=== PATIENT | female | born 1995 | race African-American/Black ===

== ENCOUNTER 2016-10-21 08:29 | Emergency (ER) | payer OTHER, MEDICAID ==
[2016-10-21 08:37] VITALS: BP 126/63
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
== END 2016-10-21 09:18 | disposition home or self-care (01) ==
LOC: ER 08:29
DX: M54.5 Low back pain (principal); R11.10 Vomiting, unspecified
CPT/HCPCS: 99283

== ENCOUNTER 2017-03-15 15:05 | Emergency (ER) | payer MEDICAID, OTHER ==
--- NOTE | 2017-03-15 16:00 | ER Document Report ---
ED Oral Problem - General Chief Complaint: Jaw Pain Stated Complaint: TOOTHACHE Time Seen by Provider: 03/15/17 15:48 Mode of Arrival: Ambulatory Information source: Patient Notes: 1-year-old female presented to ED for left lower jaw pain 2 weeks. She states the pain is 5 out of 5 this morning. She also complains of a headache. She states she has pain and numbness down her left arm for the last 2-3 weeks. She denies any fall any injuries or any neck pain. She states she also has some lacerations to her left back just above her scapula. TRAVEL OUTSIDE OF THE [place] IN LAST 30 DAYS: No - HPI Patient complains to provider of: Jaw pain, Toothache, Other - Numbness to her left arm for 2 weeks small old lacerations to the left upper back. No: Swelling of jaw Onset: Other - Has been for 2-3 weeks except for the laceration has been a little over a week Onset: Gradual Quality of pain: Achy, Dull, Sharp Severity: Moderate Pain Level: 4 Associated symptoms: Headache, Toothache, Other - Pain and numbness to the left arm healing laceration to the left upper back Worsened by: Nothing Similar symptoms previously: Yes Recently seen / treated by doctor/dentist: No - Related Data Allergies/Adverse Reactions: No Known Allergies Allergy (Verified 03/15/17 15:11) Past Medical History - General Information source: Patient - Social History Smoking Status: Former Smoker Cigarette use (# per day): No Chew tobacco use (# tins/day): No Smoking Education Provided: No Frequency of alcohol use: None Drug Abuse: None Occupation: [employer] center Lives with: Alone - Alone with children Family History: Reviewed & Not Pertinent - Past Medical History Cardiac Medical History: Reports: None Pulmonary Medical History: Reports: None EENT Medical History: Reports: None Neurological Medical History: Reports: None Endocrine Medical History: Reports: None Renal/ Medical History: Reports: None Malignancy Medical History: Reports: None GI Medical History: Reports: None Musculoskeltal Medical History: Reports None Skin Medical History: Reports None Psychiatric Medical History: Reports: Hx Depression Traumatic Medical History: Reports: None Infectious Medical History: Reports: None Past Surgical History: Reports: Hx Section - Immunizations Immunizations up to date: Yes Hx Diphtheria, Pertussis, Tetanus Vaccination: Yes Review of Systems - Review of Systems Constitutional: No symptoms reported EENT: No symptoms reported Cardiovascular: No symptoms reported Respiratory: No symptoms reported Gastrointestinal: No symptoms reported Genitourinary: No symptoms reported Female Genitourinary: No symptoms reported Musculoskeletal: No symptoms reported Skin: No symptoms reported Hematologic/Lymphatic: No symptoms reported Neurological/Psychological: No symptoms reported -: Yes All other systems reviewed and negative Physical Exam - Vital signs Vitals: Temp Pulse Resp BP Pulse Ox 98.3 F 75 18 127/63 H 100 03/15/17 15:07 03/15/17 15:07 03/15/17 15:07 03/15/17 15:07 03/15/17 15:07 Interpretation: Normal - General General appearance: Appears well, Alert - HEENT Head: Normocephalic, Atraumatic Eyes: Normal Pupils: PERRL Ears: Normal External canal: Normal Tympanic membrane: Normal Sinus: Normal Nasal: Normal Mouth/Lips: Caries Teeth diagram: 1 - Mild redness to the gums small cavity no swelling to the gums or face. Pharynx: Normal Neck: Normal - Respiratory Respiratory status: No respiratory distress Chest status: Nontender Breath sounds: Normal Chest palpation: Normal - Cardiovascular Rhythm: Regular Heart sounds: Normal auscultation Murmur: No - Abdominal Inspection: Normal Distension: No distension Bowel sounds: Normal Tenderness: Nontender Organomegaly: No organomegaly - Back Back: Normal, Nontender - Extremities General upper extremity: Normal inspection, Nontender, Normal color, Normal ROM , Normal temperature General lower extremity: Normal inspection, Nontender, Normal color, Normal ROM , Normal temperature, Normal weight bearing. No: Spencer's sign - Neurological Neuro grossly intact: Yes Cognition: Normal Orientation: AAOx4 Brenna Coma Scale Eye Opening: Spontaneous [place] Coma Scale Verbal: Oriented Brenna Coma Scale Motor: Obeys Commands [place] Coma Scale Total: 15 Speech: Normal Motor strength normal: LUE, RUE, LLE, RLE Sensory: Normal - Psychological Associated symptoms: Normal affect, Normal mood - Skin Skin Temperature: Warm Skin Moisture: Dry Skin Color: Normal Course - Vital Signs Vital signs: Temp Pulse Resp BP Pulse Ox 98.7 F 75 16 120/63 100 03/15/17 16:13 03/15/17 16:13 03/15/17 16:13 03/15/17 16:13 03/15/17 16:13 Discharge - Discharge Clinical Impression: Pain due to dental caries Condition: Stable Disposition: HOME, SELF-CARE Instructions: Use of Qztz-Ode-Qjjctsa Ibuprofen ([facility]), Family Physicians / Practices Additional Instructions: TOOTHACHE: Your pain is due to dental decay. The tooth must be repaired in order for you to feel better. You will, therefore, be referred to a dentist. We do not have dentists on the staff at [facility]. Severe swelling or drainage around a tooth usually means a dental abscess. This also requires evaluation and treatment by the dentist, but antibiotics may be prescribed while awaiting dental treatment. You should be rechecked immediately if you develop major swelling of the face, increasing pain, a lump in the jaw or gums, headache, difficulty swallowing, or fever. Amoxicillin Amoxicillin is a member of the penicillin family. It covers the germs likely to cause ear, bronchial, and urinary infections better than plain penicillin. Amoxicillin can be taken without regard to meals. Nausea after taking the medication is rare, but can occur. Diarrhea can occur, particularly in small children. Vaginal yeast infections and oral thrush in infants are also common. Contact your physician if these problems occur. Allergy to penicillins is common. If you have had an allergic reaction to any drug of the penicillin family, you should never take any other penicillin. Notify your doctor at once if you develop hives, itching, swelling, faintness, or shortness of breath. Less serious side effects can include nausea or diarrhea. Your pain in the left arm with numbness is something he will need to follow-up with the primary doctor who can do nerve conduction studies as there is no pain or discomfort in your neck and you have not injured your neck. The antibiotic that I am giving you for your dental pain should also help the lacerations on your back that you have had for about a week. FOLLOW-UP CARE: You have been referred for follow-up care to the dentists listed below. Call the dentists office for an appointment as you were instructed or within the next two days. If you experience worsening or a significant change in your symptoms, notify the physician immediately or return to the Emergency Department at any time for re-evaluation. [facility] [address] [place], [place] Mitesh mornings, by appointment [facility] [address] [place] [address] [facility] [address] [facility] [address] [facility] [address] [facility] [email or web address] [facility] [address] [place] [address] Monday- 8:00am to 5:00 pm Will see patients from other [facility]. Charges based on income and family size and accepts Medicare, Medicaid, and Insurances Will pull molars [facility] [address] Hours of Operation 8:00 am - 4:30 pm weekdays The following dental offices accept Medicaid: [facility] Dr. Pinzon Dr. Brown Dr. Mercado Dr. Mccabe Rio Sanchez Lutsavage, and Domitila oral surgery Dr. King ([place]) Dr. Laird ([place]) [facility] Drs. Cooper and Michael ([employer]) Dr. Robert ([employer]) [facility] Dr. Diallo ([place]) Drs. Weller and Scholar ([place]) Medicaid Care Line Prescriptions: Amoxicillin Trihydrate [Amoxil 875 mg Tablet] 1 tab PO BID #20 tablet Forms: Elevated Blood Pressure, Return to Work
[2017-03-15 16:14] VITALS: BP 120/63
== END 2017-03-15 16:22 | disposition home or self-care (01) ==
LOC: ER 15:05
DX: K02.9 Dental caries, unspecified (principal); R68.84 Jaw pain; K08.89 Other specified disorders of teeth and supporting structures; R51 Headache; M79.602 Pain in left arm; Z87.891 Personal history of nicotine dependence
CPT/HCPCS: 99283

== ENCOUNTER 2017-03-20 23:37 | Emergency (ER) | payer MEDICAID ==
--- NOTE | 2017-03-21 02:21 | ER Document Report ---
HPI - HPI Patient complains to provider of: Lower back pain Pain Level: 4 Context: Patient is a 21-year-old female that comes emergency department for chief complaint of 2 days of worsening lower back pain. She states that it hurts if she is sitting, standing, regardless. 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 She states she gets this intermittently frequently over the past couple of years. - DERM Skin Color: Normal Past Medical History - General Information source: Patient - Social History Smoking Status: Never Smoker Drug Abuse: None Lives with: Family Family History: Reviewed & Not Pertinent - Past Medical History Cardiac Medical History: Denies: Hx Hypertension, Hx Pulmonary Embolism, Hx Heart Murmur Pulmonary Medical History: Denies: Hx Asthma, Hx Sleep Apnea, Hx Tuberculosis Neurological Medical History: Denies: Hx Cerebrovascular Accident, Hx Seizures Endocrine Medical History: Denies: Hx Hyperthyroidism, Hx Hypothyroidism Renal/ Medical History: Denies: Hx Kidney Stones, Hx Ovarian Cysts, Hx Peritoneal Dialysis, Hx Pelvic Inflammatory Disease Malignancy Medical History: Denies: Hx Breast Cancer, Hx Cervical Cancer, Hx Ovarian Cancer GI Medical History: Denies: Hx Gastroesophageal Reflux Disease, Hx Hiatal Hernia , Hx Ulcer Musculoskeltal Medical History: Denies Hx Fibromyalgia Psychiatric Medical History: Reports: Hx Depression Denies: Hx Bipolar Disorder, Hx Post Traumatic Stress Disorder, Hx Schizophrenia Traumatic Medical History: Denies: Hx Fractures Infectious Medical History: Denies: Hx HIV Past Surgical History: Reports: Hx Section - Immunizations Immunizations up to date: Yes Hx Diphtheria, Pertussis, Tetanus Vaccination: Yes Vertical Provider Document - INFECTION CONTROL TRAVEL OUTSIDE OF THE [place] IN LAST 30 DAYS: No - HEENT HEENT: Atraumatic, Normal ENT Exam, Normocephalic - NECK Neck: Normal Inspection - RESPIRATORY Respiratory: Breath Sounds Normal, No Respiratory Distress - CARDIOVASCULAR Cardiovascular: Regular Rate, Regular Rhythm - GI/ABDOMEN Gastrointestinal: Abdomen Soft, Abdomen Non-Tender - C Section scar noted - BACK Back: negative: Normal Inspection - Mild left upper lumbar paraspinal tenderness on exam, no midline tenderness, normal upper and lower extremity exam , no saddle anesthesia, normal distal neurovascular exam - MUSCULOSKELETAL/EXTREMETIES Musculoskeletal/Extremeties: MAEW, FROM, Non-Tender - NEURO Level of Consciousness: Awake, Alert Course - Re-evaluation Re-evalutation: There appears to be left-sided paraspinal tenderness in the upper lumbar region on exam. This is mild. Completely unremarkable exam otherwise including soft abdomen. Giggling and well-appearing patient Does appear to have an infection, hCG negative. Patient treated for both musculoskeletal and urinary sources. Unremarkable vital signs. Very low suspicion of any acute concerning abnormality. Discussed results and treatment with patient, discussed return precautions. Patient states understanding and agreement. Discharge - Discharge Clinical Impression: Lower back pain Qualifiers: Chronicity: acute Back pain laterality: bilateral Sciatica presence: without sciatica Qualified Code(s): M54.5 - Low back pain Condition: Stable Disposition: HOME, SELF-CARE Additional Instructions: Your urine does indicate a urinary tract infection, take Bactrim antibiotic as directed There examination also indicates a muscular component, apply heat to the area, take the Flexeril as prescribed, take ibuprofen or similar medication in addition to this. Follow-up with primary care Emergency department for any concerning or worsening symptoms including vomiting , fever, etc. Prescriptions: Cyclobenzaprine HCl [Flexeril 5 mg Tablet] 1 - 2 tab PO TID PRN #15 tablet PRN Reason: Sulfamethoxazole/Trimethoprim [Bactrim Ds Tablet] 1 each PO BID #10 tablet Forms: Return to Work
[2017-03-21 03:03] LABS: APPEARANCE,URINE SLIGHTLY-CLOUDY; BILIRUBIN,URINE NEGATIVE (NEGATIVE); GLUCOSE, URINE NEGATIVE (NEGATIVE); KETONES,URINE NEGATIVE (NEGATIVE); LEUKOCYTE ESTERASE,URINE TRACE (NEGATIVE); NITRITE,URINE NEGATIVE (NEGATIVE); PROTEIN,URINE 30 mg/dL (NEGATIVE); URINE SPECIFIC GRAVITY 1.023; UROBILINOGEN,URINE NEGATIVE mg/dL (<2.0)
[2017-03-21] MEDS ORDERED: NAPROXEN 250 MG TABLET PO ONE (03:11)
[2017-03-21] MEDS ORDERED: SULFAMETHOXAZOLE/TRIMETHOPRIM 800-160 MG TABLET PO ONE (03:11)
[2017-03-21 03:26] VITALS: BP 118/86
== END 2017-03-21 03:26 | disposition home or self-care (01) ==
LOC: ER 23:37
DX: M54.5 Low back pain (principal)
CPT/HCPCS: 99283; 81025; 81001; J3490 ×2